=== PATIENT | female | born 1985 | race Asian ===

== ENCOUNTER → 2017-07-07 | Outpatient (CLI) | payer MEDICAID ==
--- NOTE | 2017-07-07 13:55 | US ---
EXAMINATION TYPE: US pelvic complete DATE OF EXAM: 07/07/2017 COMPARISON: NONE CLINICAL HISTORY: R10.2 Pelvic Pain. TECHNIQUE: Transabdominal sonographic images of the pelvis were acquired. Date of LMP: 06/24/17 EXAM MEASUREMENTS: Uterus: 9.3 x 3.1 x 5.5 cm Endometrial Stripe: 0.8 cm Right Ovary: 3.1 x 1.7 x 2.0 cm Left Ovary: 2.5 x 1.2 x 1.6 cm 1. Uterus: Anteverted wnl 2. Endometrium: wnl 3. Right Ovary: wnl 4. Left Ovary: wnl 5. Bilateral Adnexa: wnl 6. Posterior cul-de-sac: wnl IMPRESSION: Unremarkable pelvic ultrasound with no endometrial thickening or ovarian cysts.
== END ==
LOC: RADUSWWP 12:54
PROVIDERS: ATTEND Obstetrics & Gynecology
DX: R10.2 Pelvic and perineal pain (principal)
CPT/HCPCS: 76856

== ENCOUNTER → 2017-10-09 | Outpatient (CLI) | payer MEDICAID ==
--- NOTE | 2017-10-09 16:47 | US ---
EXAMINATION TYPE: US kidneys/renal and bladder DATE OF EXAM: 10/09/2017 COMPARISON: 07/07/2017 ultrasound pelvis CLINICAL HISTORY: Z31.21 Micro Hematuria. EXAM MEASUREMENTS: Right Kidney: 10.7 x 4.2 x 5.2 cm Left Kidney: 10.4 x 5.0 x 5.2 cm Post Void Residual Volume: 21 mL Right Kidney: Minimal prominence of the renal pelvis is present. Left Kidney: Left kidney appears normal. Bladder: Sonolucent Bilateral Jets seen: No Normal Post Void Residual: Yes IMPRESSION: Mild prominence of the right renal pelvis. 2. Retroperitoneal ultrasound otherwise unremarkable.
== END | disposition home or self-care (01) ==
LOC: RADUSWWP 10:55
PROVIDERS: ATTEND Urology
DX: R31.21 Asymptomatic microscopic hematuria (principal)
CPT/HCPCS: 76770

== ENCOUNTER → 2017-10-20 | Outpatient (CLI) | payer MEDICAID | END | disposition home or self-care (01) | LOC: LABWHC1 12:46 | PROVIDERS: ATTEND Obstetrics & Gynecology | DX: Z34.80 Encounter for supervision of other normal pregnancy, unspecified trimester (principal); Z3A.00 Weeks of gestation of pregnancy not specified | CPT/HCPCS: 36415; 84702 ==

== ENCOUNTER → 2017-10-20 | Outpatient (CLI) | payer MEDICAID ==
--- NOTE | 2017-10-20 13:19 | US ---
EXAMINATION TYPE: Transabdominal DATE OF EXAM: 06/10/17 COMPARISON: NONE CLINICAL HISTORY: Z36 Confirm dates, O46.91 Spotting first trimester. Bicornuate uterus. EXAM PERFORMED: Transvaginal (TV) and Transabdominal (TA) EXAM MEASUREMENTS: GESTATIONAL AGE / DATING Physician Established: Not yet established Dates by LMP: (7 weeks/2 days) EDC: 06/06/2018 Dates by First Scan: No previous this is first scan Dates by Current Scan for: (5weeks/5 days) EDC: 06/17/2018 MATERNAL ANATOMY Uterus: 10.3 x 4.6 x 6.7 cm Right Ovary: 4.1 x 3.1 x 4.1 cm Left Ovary: 2.6 x 1.3 x 1.7 cm Post CDS / Adnexa: Small amount of fluid visualized adjacent to the right ovary Presence of free fluid: Yes Presence of corpus luteal cyst: Yes, right ovary measuring 3.0 x 2.7 x 3.1 cm Presence of subchorionic bleed: No GESTATION / SURVEY CRL: 0.27 cm (5 weeks/6 days) MSD: 1.4 cm (5 weeks/4 days) Yolk Sac (normal less than 6mm): 3 mm Heart Rate: 123 bpm Rhythm: Normal IUP: Live IUP Date of LMP: 08/30/2017 Beta HcG (if available): Not available at this time Live IUP with an KAYLA of 06/17/2018 by this exam. Corpus luteal cyst area visualized right ovary measu ring 3.0 x 2.7 x 3.1 cm. Possible bicornate uterus is seen. Endometrial thickening is noted of the left endometrium, likely ph ysiologic and related to decidual reaction with intrauterine in the right endometrium IMPRESSION: Single live intrauterine with a sonographic age of 5 weeks and 5 days and estimated date of delivery of 06/17/2018, discordant with menstrual age.
== END | disposition home or self-care (01) ==
LOC: RADUSWWP 12:13
PROVIDERS: ATTEND Obstetrics & Gynecology
DX: Z36.89 Encounter for other specified antenatal screening (principal); Z3A.01 Less than 8 weeks gestation of pregnancy; Z88.0 Allergy status to penicillin; Z88.1 Allergy status to other antibiotic agents; Z88.5 Allergy status to narcotic agent
CPT/HCPCS: 76801; 76817

== ENCOUNTER → 2017-11-05 | Outpatient (CLI) | payer MEDICAID ==
[2017-11-05 10:22] LABS: HCT 40.1 % (34.0-46.0); HGB 12.9 gm/dL (11.4-16.0); MCH 30.7 pg (25.0-35.0); MCHC 32.2 g/dL (31.0-37.0); MCV 95.4 fL (80.0-100.0); Mean Platelet Volume 6.9; Platelet Count 229 k/uL (150-450); RDW 12.4 % (11.5-15.5); WBC 7.4 k/uL (3.8-10.6)
[2017-11-05 10:42] LABS: Glucose 68 mg/dL (74-99)
--- NOTE | 2017-11-05 16:52 | US ---
EXAMINATION TYPE: Transabdominal DATE OF EXAM: 06/10/17 COMPARISON: NONE CLINICAL HISTORY: First trimester bleeding/spotting O46.91. debbie ob, spotting EXAM PERFORMED: OBTA EXAM MEASUREMENTS: GESTATIONAL AGE / DATING Physician Established: not established Dates by LMP: (9 weeks/3 days) EDC: 06/06/2017 Dates by First Scan: (8 weeks/0 days) EDC: 06/17/2018 Dates by Current Scan for: (8 weeks/1 days) EDC: 06/16/2018 MATERNAL ANATOMY Uterus: 12.8 x 8.7 x 4.8cm, appearance of bicornuate UT with gestational sac seen within right horn Right Ovary: 5.3 x 3.5 x 3.5cm Left Ovary: not seen due to bowel gas Post CDS / Adnexa: wnl Presence of free fluid: no Presence of corpus luteal cyst: 3.6cm cyst Presence of subchorionic bleed: no GESTATION / SURVEY CRL: 1.6cm (8 weeks/1 days) MSD: wnl Yolk Sac (normal less than 6mm): 0.3cm Heart Rate: 160 bpm Rhythm: Normal IUP: Viable IUP Date of LMP: 08/30/2017 IMPRESSION: 1. Single intrauterine gestation estimated 8 weeks 1 day gestation based on crown-rump length. Cardia c activity measures 160 bpm.
== END | disposition home or self-care (01) ==
LOC: RADUSWWP 09:39
PROVIDERS: ATTEND Obstetrics & Gynecology
DX: O46.91 Antepartum hemorrhage, unspecified, first trimester (principal); Z3A.08 8 weeks gestation of pregnancy
CPT/HCPCS: 36415; 76801; 82565; 82947; 85027; 86762; 86780; 86850; 86900; 86901; 87340

== ENCOUNTER → 2017-12-01 | Outpatient (CLI) | payer MEDICAID ==
--- NOTE | 2017-12-01 12:35 | US ---
EXAMINATION TYPE: Transabdominal DATE OF EXAM: 06/10/17 COMPARISON: US 11/05/2017 CLINICAL HISTORY: O46.91 Spotting, O76 Absent Heart tones. Absent heart tones at doctor office. EXAM PERFORMED: Transabdominal (TA) EXAM MEASUREMENTS: GESTATIONAL AGE / DATING Physician Established: (11 weeks/5 days) EDC: 06/17/2018 Dates by First Scan: (11 weeks/5 days) EDC: 06/17/2018 Dates by Current Scan for: (12 weeks/0 days) EDC: 06/15/2018 MATERNAL ANATOMY Uterus: 10.9 x 6.0 x 8.1 cm, appearance of bicornuate UT with gestational sac seen within right horn Right Ovary: 4.7 x 3.5 x 3.3 cm Left Ovary: 2.7 x 1.2 x 1.6 cm Post CDS / Adnexa: wnl Presence of free fluid: No Presence of corpus luteal cyst: Right ovary measuring 2.6 x 2.6 x 2.6 cm, previously measuring 3.6 c m on 11/05/2017 Presence of subchorionic bleed: No GESTATION / SURVEY CRL: (12 weeks/0 days) Heart Rate: 171 bpm Rhythm: Normal IUP: Viable IUP Date of LMP: Unsure Beta HcG (if available): Not available at time of exam Single live intrauterine gestation is redemonstrated as gestational sac and pole are seen. Yolk sac is not clearly identified on current study. No free fluid is seen in pelvic cul-de-sac. Both ovaries are seen. Cystic area right ovary is redemonstrated measuring 2.6 x 2.6 x 2.6 cm, previ ously measuring 3.6 cm on 11/05/2017 . No suspicious extraovarian adnexal lesions are present. Preliminary results given to Dr Bhardwaj at time of exam. IMPRESSION: Single live intrauterine gestation is redemonstrated, heart rate is identified and regular and within normal limits. Mean crown-rump length is 5.3 cm corresponding to 12 weeks 0 day old fetus.
== END | disposition home or self-care (01) ==
LOC: RADUSWWP 11:42
PROVIDERS: ATTEND Obstetrics & Gynecology
DX: O46.91 Antepartum hemorrhage, unspecified, first trimester (principal); Z3A.12 12 weeks gestation of pregnancy
CPT/HCPCS: 76801

== ENCOUNTER → 2018-01-21 | Outpatient (CLI) | payer MEDICAID ==
--- NOTE | 2018-01-22 07:16 | US ---
EXAMINATION TYPE: US OB anatomy transabd DATE OF EXAM: 01/21/2018 COMPARISON: US HISTORY: O36.62X0 LARGE FOR DATES Anatomy scan TECHNIQUE: Transabdominal (TA) EXAM MEASUREMENTS: GESTATIONAL AGE / DATING Physician Established: (19 weeks/0 days) EDC: 06/17/2018 Dates by LMP: Unknown Dates by First Scan: (19 weeks/0 days) EDC: 06/17/2018 Dates by Current Scan for: (18 weeks/2 days) EDC: 06/22/2018 SURVEY IUP: Single PLACENTA: Posterior PREVIA: Marginal JAZ: 12.4 cm Normal CERVICAL LENGTH (transabdominal: norm > 3.0cm): 3.3 cm BIOMETRY PRESENTATION: Breech BPD: 4.1 cm 18 weeks / 4 days HC: 15.4 cm 18 weeks / 3 days AC: 12.4 cm 18 weeks / 1 days FL: 2.6 cm 18 weeks / 0 days ESTIMATED WEIGHT IN GRAMS: 220 grams ESTIMATED WEIGHT IN LBS/OZ: 0 lbs. 8 oz. WEIGHT PERCENTAGE BASED ON ESTABLISHED DATE: 7 % HC/AC: 1.24 Normal FL/AC: 21 Normal HEART RATE: 147 bpm RHYTHM: Normal ANATOMY SEEN (within normal limits): * Lateral Vent (< 1 cm) 0.7 cm * Cisterna Magna (< 1.1 cm) 0.3 cm * Nuchal Fold (< 0.6 cm) 0.3 cm * Cerebellum (varies with age) 1.9 cm Choroid Plexus (bilateral) Midline Falx Cavus Septi Pellucidi Outflow tracts: LVOT/RVOT Stomach Situs Nose / Lips Diaphragm Kidneys (bilateral) Bladder Cord Insert Three Vessel Cord Longitudinal Spine Transverse Spine Arms (bilateral) Legs (bilateral) ANATOMY SEEN (does not appear within normal limits): Four Chamber Heart- Echogenic foci seen within ventricle IMPRESSION: Single, viable IUP/ Marginal placental previa/ Echogenic foci within ventricle of heart, otherwise all other anatomy appeared wnl Pt has known bicornuate uterus, septation seen at uterine fundus during scan
== END ==
LOC: RADUSWWP 09:38
PROVIDERS: ATTEND Obstetrics & Gynecology
DX: O44.22 Partial placenta previa NOS or without hemorrhage, second trimester (principal); O99.89 Other specified diseases and conditions complicating pregnancy, childbirth and the puerperium; Q51.3 Bicornate uterus; Z3A.18 18 weeks gestation of pregnancy
CPT/HCPCS: 76811

== ENCOUNTER → 2018-03-12 | Outpatient (CLI) | payer MEDICAID ==
[2018-03-12 13:03] LABS: HCT 34.3 % (34.0-46.0); HGB 11.6 gm/dL (11.4-16.0); MCH 31.6 pg (25.0-35.0); Mean Platelet Volume 7.7; Platelet Count 179 k/uL (150-450); RBC 3.68 m/uL (3.80-5.40); RDW 12.9 % (11.5-15.5); WBC 12.8 k/uL (3.8-10.6)
== END ==
LOC: LABWHC1 10:39
PROVIDERS: ATTEND Obstetrics & Gynecology
DX: Z34.82 Encounter for supervision of other normal pregnancy, second trimester (principal); Z3A.00 Weeks of gestation of pregnancy not specified
CPT/HCPCS: 36415; 82950; 85027

== ENCOUNTER 2018-04-16 17:18 | Observation (INO) | payer MEDICAID ==
[2018-04-16 18:40] VITALS: BMI 22.2
--- NOTE | 2018-04-16 19:29 | P.HPOB ---
History of Present Illness H&P Date: 04/16/18 Chief Complaint: Vaginal bleeding This is a 32-year-old female 2 para 1 with an estimated date of confinement of 06/17/2018, estimated gestational age of 31 and one sevenths weeks, who presents to labor and delivery with complaints of vaginal bleeding since approximate 4 PM today. She was seen at maternal medicine today and had an ultrasound performed that showed a low-lying placenta but no previa and breech presentation. She went to the bathroom and when she wiped she noticed some blood. She then put a pad on and came into labor and delivery. She denies any significant pain but does notice some very mild lower cramping. She denies any clots or heavy bleeding. Her has been complicated by a bicornuate uterus. She also had a abnormal quad screen that showed increased risk for Down syndrome. She had [id number] that was within normal limits. echo was also performed that was within normal limits. labs: GC/chlamydia-negative Random glucose-68 Hemoglobin-12.9 Hepatitis B surface antigen-nonreactive Rubella-immune Syphilis antibody-nonreactive Blood type-O+ Antibody screen-negative One hour Glucola-119 Obstetrical history: . History of delivery at 37 weeks for labor and breech presentation [employer] history: No history of sexual transmitted diseases. History of bicornate uterus Review of Systems Constitutional: Denies chills, Denies fever Eyes: denies blurred vision, denies pain Ears, nose, mouth and throat: Denies headache, Denies sore throat Cardiovascular: Denies chest pain, Denies shortness of breath Respiratory: Denies cough Gastrointestinal: Denies abdominal pain Genitourinary: Reports abnormal vaginal bleeding, Reports pelvic pain (Mild lower cramping), Reports Musculoskeletal: Denies myalgias Integumentary: Denies pruritus, Denies rash Neurological: Denies numbness, Denies weakness Psychiatric: Denies anxiety, Denies depression Past Medical History Past Medical History: No Reported History Additional Past Medical History / Comment(s): Bicornuate uterus History of Any Multi-Drug Resistant Organisms: None Reported Past Surgical History: Section, Ear Surgery Past Anesthesia/Blood Transfusion Reactions: No Reported Reaction Past Psychological History: No Psychological Hx Reported Smoking Status: Never smoker Past Alcohol Use History: None Reported Past Drug Use History: None Reported - Past Family History Father Additional Family Medical History / Comment(s): Cirrhosis of the liver Medications and Allergies Home Medications Medication Instructions Recorded Confirmed Type RX: Pnv,Calcium 72/Iron/Folic Acid 1 each PO DAILY 05/25/15 04/16/18 History [ Plus Tablet] Allergies Allergy/AdvReac Type Severity Reaction Status Date / Time acetaminophen [From Percocet] Allergy Nausea & Verified 05/25/15 20:52 Vomiting cefaclor [From Ceclor] Allergy Rash/Hives Verified 05/25/15 20:52 oxycodone HCl [From Percocet] Allergy Nausea & Verified 05/25/15 20:52 Vomiting Penicillins Allergy Rash/Hives Verified 05/25/15 20:52 sulfamethoxazole Allergy Rash/Hives Verified 04/16/18 19:24 [From Bactrim] trimethoprim [From Bactrim] Allergy Rash/Hives Verified 04/16/18 19:24 Exam Osteopathic Statement: *. No significant issues noted on an osteopathic structural exam other than those noted in the History and Physical/Consult. Vital Signs Temp Pulse Resp BP Pulse Ox 04/16/18 18:28 97.6 F 68 18 118/74 100 04/16/18 17:42 97.6 F 68 18 118/74 Intake and Output 04/16/18 04/16/18 04/16/18 06:59 14:59 22:59 Other: Weight 62.596 kg HEENT: Within normal limits Heart: Regular rate and rhythm Lungs: Clear to auscultation bilaterally Abdomen: Soft, nontender Cervix: Closed/50%/-3 with scant dark blood noted on the glove. Scant brown discharge is noted on her panty liner heart tones: Reactive Contractions: None Extremities: Negative Homans Assessment and Plan (1) Vaginal bleeding during Current Visit: Yes Status: Acute Code(s): O46.90 - ANTEPARTUM HEMORRHAGE, UNSPECIFIED, UNSPECIFIED TRIMESTER SNOMED Code(s): 58231063402192391 (2) Breech presentation Current Visit: No Status: Acute Code(s): O32.1XX0 - MATERNAL CARE FOR BREECH PRESENTATION, UNSP SNOMED Code(s): 2189978 Plan: Will admit for observation. Continuous monitoring.
--- NOTE | 2018-04-16 19:31 | P.MSEPDOC ---
Presenting Problems - Arrival Data Date of Arrival on Unit: 04/16/18 Time of Arrival on Unit: 17:30 Mode of Transport: Ambulatory - Complaint OB-Reason for Admission/Chief Complaint: Vaginal Bleeding Medical History - Information : 2 Para: 1 Term: 1 : 0 Abortions: Spontaneous or Elective: 0 Number of Living Children: 1 - Gestational Age Gestational Age by KAYLA (wks/days): 31 Weeks and 1 Days - History Complications: Prior , Placenta Previa Comment: ultrasound at high risk today showed low lying placenta - per pt Review of Systems - Review of Systems Constitutional: No problems Breast: No problems ENT: No problems Cardiovascular: No problems Respiratory: No problems Gastrointestinal: No problems Genitourinary: No problems Musculoskeletal: No problems Neurological: No problems Skin: No problems Vital Signs - Temperature Temperature: 97.6 F Temperature Source: Temporal Artery Scan - Pulse Right Sitting Brachial Pulse Rate: 68 Pulse Assessment Method: Automatic Cuff - Respirations Respiratory Rate: 18 Oxygen Delivery Method: Room Air O2 Sat by Pulse Oximetry: 100 - Blood Pressure Right Arm Sitting Blood Pressure: 118/74 Blood Pressure Mean: 88 Blood Pressure Source: Automatic Cuff Medical Screen Scoring (Pre) - Cervical Exam Dilation: 0 cm = 0 - Uterine Contractions Frequency: N/A Duration: N/A Intensity: N/A - Maternal Vital Signs Maternal Temperature: N/A Signs of Preeclampsia: N/A Maternal Respirations: N/A - Pain Assessment Pain Scale Used: Numeric (1 - 10) Pain Intensity: 0 Pain Management Goal: 3 - Maternal Trauma Maternal Trauma: N/A - Assessment Baseline FHR: 130 Heart Rate - NICHD Category: Category I (Normal) = 0 NST: Reactive Position: N/A Station: N/A - Total Score Total Score (Pre): 0 - Level of Risk Level of Risk: Low (0-5) Physician Notification (Pre) - Physician Notified Physician Notified Date: 04/16/18 Physician Notified Time: 18:00 Physician/Practitioner Notifed:: Dr Pizarro Spoke With: Dr Pizarro New Order Received: Yes - Notification Comment Comment: pt assessed and examined per Dr Pizarro in triage. Admit for OBV - vaginal bleeding. Disposition - Disposition OB Disposition: Admit, LDRP Suite Transferred to:: 18 I agree with the RN Medical Screening Exam: Yes Risk & Benefit of care provided described in d/c instruction: Yes Diagnosis: ANTEPARTUM HEMORRHAGE, UNSPECIFIED, THIRD TRIMESTER
--- NOTE | 2018-04-17 07:33 | P.DS ---
Providers Date of admission: 04/16/18 18:04 Expected date of discharge: 04/17/18 Attending physician: Rose Pizarro Primary care physician: Stated None - Discharge Diagnosis(es) (1) Vaginal bleeding during Current Visit: Yes Status: Acute (2) Breech presentation Current Visit: No Status: Acute Hospital Course: This is a 32-year-old female 2 para 1 at 31-2/7 weeks who presented yesterday with some vaginal bleeding with wiping. This started after she returned from [place] after seeing maternal medicine and having ultrasound at that time. She was told that her placenta was still low-lying but not covering the cervix. Her cervix was checked and found to be closed, 50% , -3. She had minimal bleeding noted on her pad and a scant amount was noted with her cervical check. All of the blood was dark brown. She was admitted for observation overnight. She states her bleeding has stopped very much completely this morning. She has had no bleeding on her pad. Her baby is active and she denies feeling any cramping or pain. She will be discharged home today. She is advised to stay off of work until Friday. She is advised no intercourse. She does have a follow-up appointment with me next week. She is advised to return to the hospital if she has any further bright red bleeding or clots. Patient Condition at Discharge: Stable Plan - Discharge Summary New Discharge Prescriptions: No Action Pnv,Calcium 72/Iron/Folic Acid [ Plus Tablet] 1 each PO DAILY Discharge Medication List Pnv,Calcium 72/Iron/Folic Acid [ Plus Tablet] 1 each PO DAILY 05/25/15 [ History] Activity/Diet/Wound Care/Special Instructions: No intercourse. May resume normal activities with no lifting more than 20 pounds. Off work until Friday. Discharge Disposition: HOME SELF-CARE
[2018-04-17 09:55] VITALS: BP 105/65; PULSE 63; RESP 16; TEMP 97.3
== END 2018-04-17 09:22 | disposition home or self-care (01) ==
LOC: FBPOP 17:18 → 4FBP 18:04
PROVIDERS: ADMIT Obstetrics & Gynecology; ATTEND Obstetrics & Gynecology
DX: O44.53 Low lying placenta with hemorrhage, third trimester (principal); O34.03 Maternal care for unspecified congenital malformation of uterus, third trimester; Q51.3 Bicornate uterus; O32.1XX0 Maternal care for breech presentation, not applicable or unspecified; Z3A.31 31 weeks gestation of pregnancy; O34.219 Maternal care for unspecified type scar from previous cesarean delivery; Z83.49 Family history of other endocrine, nutritional and metabolic diseases; Z88.1 Allergy status to other antibiotic agents; Z88.5 Allergy status to narcotic agent; Z88.0 Allergy status to penicillin; Z88.2 Allergy status to sulfonamides
CPT/HCPCS: 59025; 99215; G0378 ×2

== ENCOUNTER 2018-04-22 18:16 | Outpatient (CLI) | payer MEDICAID ==
[2018-04-22 18:50] VITALS: BP 133/86; PULSE 85; RESP 18; TEMP 98
--- NOTE | 2018-04-22 20:11 | US ---
EXAMINATION TYPE: US OB >= 14 wk fetus DATE OF EXAM: 04/22/2018 COMPARISON: None CLINICAL HISTORY: vaginal bleedingBleeding patient has bicornuate uterus. TECHNIQUE: Transabdominal (TA) GESTATIONAL AGE / DATING Physician Established: (32 weeks/0 days) EDC: 06/17/2018 Dates by LMP: (32 weeks/0 days) EDC: 06/17/2018 Dates by First Scan: (5 weeks/4 days) EDC: 06/17/2018 Dates by Current Scan: (30 weeks/0 days) EDC: 07/01/2018 SURVEY IUP: Single PLACENTA: Posterior PREVIA: Low Lying JAZ: 15 cm Normal CERVICAL LENGTH (transabdominal: norm > 3.0cm): 3.7 cm BIOMETRY PRESENTATION: Vertex LIE: Longitudinal BPD: 8.19 cm 32 weeks / 6 days HC: 29.29 cm 32 weeks / 2 days AC: 25.4 cm 29 weeks / 2 days FL: 5.39 cm 28 weeks / 4 days ESTIMATED WEIGHT IN GRAMS: 1415 grams ESTIMATED WEIGHT IN LBS/OZ: 3 lbs. 7 oz. WEIGHT PERCENTAGE BASED ON ESTABLISHED DATES: <3% HC/AC: 1.17cm Normal FL/AC: 21.52cm Normal HEART RATE: 132 bpm RHYTHM: Normal IMPRESSION: The estimated weight is 1415 g which is less than 3 percentile compared to the original exam of 10/20/2017. IUGR should be considered. No placental abnormality seen.
--- NOTE | 2018-05-03 12:39 | P.MSEPDOC ---
Presenting Problems - Arrival Data Date of Arrival on Unit: 04/22/18 Time of Arrival on Unit: 18:35 Mode of Transport: Portable - Complaint OB-Reason for Admission/Chief Complaint: Vaginal Bleeding Medical History - Information : 2 Para: 1 Term: 1 : 0 Abortions: Spontaneous or Elective: 0 Number of Living Children: 1 - Gestational Age Gestational Age by KAYLA (wks/days): 32 Weeks and 0 Days - History Complications: Placenta Previa Comment: pt states low lying placenta at her last ultrasound with high risk - last week. Review of Systems - Review of Systems Constitutional: No problems Breast: No problems ENT: No problems Cardiovascular: No problems Respiratory: No problems Gastrointestinal: No problems Genitourinary: No problems Musculoskeletal: No problems Neurological: No problems Skin: No problems Comment: vaginal bleeding Vital Signs - Temperature Temperature: 98.0 F Temperature Source: Temporal Artery Scan - Pulse Right Sitting Brachial Pulse Rate: 85 Pulse Assessment Method: Automatic Cuff - Respirations Respiratory Rate: 18 Oxygen Delivery Method: Room Air - Blood Pressure Right Arm Sitting Blood Pressure: 133/86 Blood Pressure Mean: 101 Blood Pressure Source: Automatic Cuff Medical Screen Scoring (Pre) - Cervical Exam Dilation: Exam Deferred Effacement: Exam Deferred - Uterine Contractions Frequency: N/A - Maternal Vital Signs Maternal Temperature: N/A Maternal Blood Pressure: N/A Signs of Preeclampsia: N/A Maternal Respirations: N/A - Pain Assessment Pain Scale Used: Numeric (1 - 10) Pain Intensity: 0 Pain Management Goal: 3 - Maternal Trauma Maternal Trauma: N/A - Assessment Baseline FHR: 135 Heart Rate - NICHD Category: Category I (Normal) = 0 NST: Reactive Position: N/A Station: N/A - Total Score Total Score (Pre): 0 - Level of Risk Level of Risk: N/A Physician Notification (Pre) - Physician Notified Physician Notified Date: 04/22/18 Physician Notified Time: 18:45 Physician/Practitioner Notifed:: Dr Alexander Spoke With: Dr Alexander New Order Received: Yes - Notification Comment Comment: pending Ultrasound at bedside Medical Screen Scoring (Post) - Cervical Exam Dilation: Exam Deferred Effacement: Exam Deferred Membranes: Intact - Uterine Contractions Frequency: N/A - Maternal Vital Signs Maternal Temperature: N/A Maternal Blood Pressure: N/A Signs of Preeclampsia: N/A Maternal Respirations: N/A - Pain Assessment Pain Scale Used: Numeric (1 - 10) Pain Intensity: 0 - Assessment Heart Rate: 130 Heart Rate - NICHD Category: Category I (Normal) = 0 NST: Reactive Position: N/A Station: N/A - Total Score Total Score (Post): 0 - Post Treatment Level of Risk Post Treatment Level of Risk: Low (0-5) Physician Notification (Post) - Physician Notified Physician Notified Date: 04/22/18 Physician Notified Time: 20:22 Physician/Practitioner Notified:: Dr. Alexander Spoke With: Dr. Alexander New Order Received: Yes - Notification Comment Comment: Dr. Alexander called and given report on pt u/s results in tr. Orders recieved. that pt may stay for obv if desired or to be d/c to home and follow up with Dr. Pizarro in. am apt. Disposition - Disposition OB Disposition: Discharge to home Discharge Date: 04/22/18 Discharge Time: 21:10 I agree with the RN Medical Screening Exam: Yes Risk & Benefit of care provided described in d/c instruction: Yes Diagnosis: SPOTTING COMPLICATING , THIRD TRIMESTER
== END 2018-04-22 21:15 | disposition home or self-care (01) ==
LOC: FBPOP 18:16
PROVIDERS: ATTEND Obstetrics & Gynecology
DX: O26.853 Spotting complicating pregnancy, third trimester (principal); Z3A.32 32 weeks gestation of pregnancy
CPT/HCPCS: 59025; 76805; 99213

== ENCOUNTER 2018-04-23 11:59 | Outpatient (CLI) | payer MEDICAID ==
[2018-04-23] MEDS ORDERED: BETAMET ACET-BETAMETH SOD PHOS 6 MG/ML VIAL IM SCH (12:30)
[2018-04-23 13:36] VITALS: BP 126/72; PULSE 71; RESP 16; TEMP 98.3
--- NOTE | 2018-04-24 08:37 | P.MSEPDOC ---
Presenting Problems - Arrival Data Date of Arrival on Unit: 04/23/18 Time of Arrival on Unit: 11:59 Mode of Transport: Ambulatory - Complaint OB-Reason for Admission/Chief Complaint: NST, Celestone Injection Comment: from office. 32 weeks.low lying placenta/bicornia uterus/bleeding Medical History - Information : 2 Para: 1 Term: 1 : 0 Abortions: Spontaneous or Elective: 0 Number of Living Children: 0 - Gestational Age Gestational Age by KAYLA (wks/days): 32 Weeks and 1 Days - History Complications: Other Review of Systems - Review of Systems Constitutional: No problems Breast: No problems ENT: No problems Cardiovascular: No problems Respiratory: No problems Gastrointestinal: No problems Genitourinary: No problems Musculoskeletal: No problems Neurological: No problems Skin: No problems Vital Signs - Temperature Temperature: 98.3 F Temperature Source: Temporal Artery Scan - Pulse Right Radial Pulse Rate: 71 Pulse Assessment Method: Automatic Cuff - Respirations Respiratory Rate: 16 Oxygen Delivery Method: Room Air O2 Sat by Pulse Oximetry: 99 - Blood Pressure Right Arm Blood Pressure: 126/72 Blood Pressure Mean: 90 Blood Pressure Source: Automatic Cuff Medical Screen Scoring (Pre) - Cervical Exam Dilation: Exam Deferred Effacement: Exam Deferred - Uterine Contractions Frequency: N/A Duration: N/A Intensity: N/A - Maternal Vital Signs Maternal Temperature: N/A Maternal Blood Pressure: N/A Signs of Preeclampsia: N/A Maternal Respirations: N/A - Pain Assessment Pain Scale Used: Numeric (1 - 10) Pain Intensity: 0 - Maternal Trauma Maternal Trauma: N/A - Assessment Baseline FHR: 140 Heart Rate - NICHD Category: Category I (Normal) = 0 NST: Reactive Position: N/A - Total Score Total Score (Pre): 0 - Level of Risk Level of Risk: Low (0-5) Physician Notification (Pre) - Physician Notified Physician Notified Date: 04/23/18 Physician Notified Time: 13:15 Physician/Practitioner Notifed:: rosenda Spoke With: rosenda New Order Received: Yes (may discharge home with instructions) - Notification Comment Comment: return for repeat celestone tomorrow. nst, to see high risk next week Disposition - Disposition OB Disposition: Discharge to home, Written follow up instructions reviewed Discharge Date: 04/23/18 Discharge Time: 13:20 I agree with the RN Medical Screening Exam: Yes Risk & Benefit of care provided described in d/c instruction: Yes Diagnosis: LABOR WITHOUT DELIVERY, THIRD TRIMESTER
== END 2018-04-23 13:20 | disposition home or self-care (01) ==
LOC: FBPOP 11:59
PROVIDERS: ATTEND Obstetrics & Gynecology
DX: O60.03 Preterm labor without delivery, third trimester (principal); Z3A.32 32 weeks gestation of pregnancy
CPT/HCPCS: 59025; 96372; J0702

== ENCOUNTER 2018-04-24 12:29 | Outpatient (CLI) | payer MEDICAID ==
[2018-04-24] MEDS ORDERED: BETAMET ACET-BETAMETH SOD PHOS 6 MG/ML VIAL IM SCH (12:45)
[2018-04-24 14:17] VITALS: BP 124/68; PULSE 80; RESP 14; TEMP 97.5
--- NOTE | 2018-04-25 00:10 | P.MSEPDOC ---
Presenting Problems - Arrival Data Date of Arrival on Unit: 04/24/18 Time of Arrival on Unit: 12:33 Mode of Transport: Ambulatory - Complaint OB-Reason for Admission/Chief Complaint: Celestone Injection Medical History - Information : 2 Para: 1 Term: 1 : 0 Abortions: Spontaneous or Elective: 0 Number of Living Children: 1 - Gestational Age Gestational Age by KAYLA (wks/days): 32 Weeks and 3 Days Review of Systems - Review of Systems Constitutional: No problems Breast: No problems ENT: No problems Cardiovascular: No problems Respiratory: No problems Gastrointestinal: No problems Genitourinary: No problems Musculoskeletal: No problems Neurological: No problems Skin: No problems Vital Signs - Temperature Temperature: 97.5 F Temperature Source: Tympanic - Pulse Right Brachial Pulse Rate: 80 Pulse Assessment Method: Automatic Cuff - Respirations Respiratory Rate: 14 Oxygen Delivery Method: Room Air - Blood Pressure Right Arm Blood Pressure: 124/68 Blood Pressure Mean: 86 Blood Pressure Source: Automatic Cuff Medical Screen Scoring (Pre) - Cervical Exam Dilation: 1-3 cm = 1 Effacement: More than 50% = 2 Membranes: Intact - Uterine Contractions Frequency: N/A Duration: N/A Intensity: N/A - Maternal Vital Signs Maternal Temperature: N/A Maternal Blood Pressure: N/A Signs of Preeclampsia: N/A Maternal Respirations: N/A - Pain Assessment Pain Scale Used: Numeric (1 - 10) Pain Intensity: 0 Pain Management Goal: 0 - Maternal Trauma Maternal Trauma: N/A - Assessment Baseline FHR: 135 Heart Rate - NICHD Category: Category I (Normal) = 0 NST: Reactive Position: N/A Station: N/A - Total Score Total Score (Pre): 3 - Level of Risk Level of Risk: Low (0-5) Physician Notification (Pre) - Physician Notified Physician Notified Date: 04/24/18 Physician Notified Time: 13:05 Physician/Practitioner Notifed:: Dr. Pizarro Spoke With: Dr. Pizarro New Order Received: Yes - Notification Comment Comment: check cervix and if the same as yesterday d/c home Disposition - Disposition OB Disposition: Discharge to home Discharge Date: 04/24/18 Discharge Time: 13:17 I agree with the RN Medical Screening Exam: Yes Risk & Benefit of care provided described in d/c instruction: Yes Diagnosis: LABOR WITHOUT DELIVERY, THIRD TRIMESTER
== END 2018-04-24 13:20 | disposition home or self-care (01) ==
LOC: FBPOP 12:29
PROVIDERS: ATTEND Obstetrics & Gynecology
DX: O60.03 Preterm labor without delivery, third trimester (principal); Z3A.32 32 weeks gestation of pregnancy
CPT/HCPCS: 59025; 99213; J0702

== ENCOUNTER 2018-04-28 12:58 | Outpatient (CLI) | payer MEDICAID ==
[2018-04-28 13:24] VITALS: BP 112/63; PULSE 79
--- NOTE | 2018-04-30 07:56 | P.MSEPDOC ---
Presenting Problems - Arrival Data Date of Arrival on Unit: 04/28/18 Time of Arrival on Unit: 12:58 Mode of Transport: Ambulatory - Complaint OB-Reason for Admission/Chief Complaint: NST Medical History - Information : 2 Para: 1 Term: 1 : 0 Abortions: Spontaneous or Elective: 0 Number of Living Children: 1 - Gestational Age Gestational Age by KAYLA (wks/days): 32 Weeks and 6 Days - History Complications: Placenta Previa Comment: Bleeding with Review of Systems - Review of Systems Constitutional: No problems Breast: No problems ENT: No problems Cardiovascular: No problems Respiratory: No problems Gastrointestinal: No problems Genitourinary: No problems Musculoskeletal: No problems Neurological: No problems Skin: No problems Vital Signs - Pulse Pulse Oximetery Pulse Rate: 79 Pulse Assessment Method: Pulse Oximetry - Blood Pressure Right Arm Blood Pressure: 112/63 Blood Pressure Mean: 79 Blood Pressure Source: Automatic Cuff Medical Screen Scoring (Pre) - Cervical Exam Dilation: Exam Deferred Effacement: Exam Deferred - Uterine Contractions Frequency: N/A Duration: N/A Intensity: N/A - Maternal Vital Signs Maternal Temperature: N/A Signs of Preeclampsia: N/A Maternal Respirations: N/A - Pain Assessment Pain Scale Used: Numeric (1 - 10) Pain Intensity: 0 Pain Management Goal: 0 - Maternal Trauma Maternal Trauma: N/A - Assessment Heart Rate - NICHD Category: Category I (Normal) = 0 NST: Reactive Position: N/A Station: N/A - Total Score Total Score (Pre): 0 - Level of Risk Level of Risk: N/A Physician Notification (Pre) - Physician Notified Physician Notified Date: 04/28/18 Physician/Practitioner Notifed:: Moira Medical Screen Scoring (Post) - Assessment Heart Rate - NICHD Category: Category I (Normal) = 0 NST: Reactive Position: N/A - Total Score Total Score (Post): 0 - Post Treatment Level of Risk Post Treatment Level of Risk: N/A Physician Notification (Post) - Physician Notified Physician Notified Date: 04/28/18 Physician Notified Time: 13:30 Physician/Practitioner Notified:: Dr. Pizarro Spoke With: Dr. Pizarro New Order Received: No - Notification Comment Comment: Discharge pt home. Pt to continue with current plan. Disposition - Disposition OB Disposition: Discharge to home Discharge Date: 04/28/18 Discharge Time: 14:20 I agree with the RN Medical Screening Exam: Yes Risk & Benefit of care provided described in d/c instruction: Yes Diagnosis: LABOR WITHOUT DELIVERY, THIRD TRIMESTER
== END 2018-04-28 14:20 | disposition home or self-care (01) ==
LOC: FBPOP 12:58
PROVIDERS: ATTEND Obstetrics & Gynecology
DX: O60.03 Preterm labor without delivery, third trimester (principal); Z3A.32 32 weeks gestation of pregnancy
CPT/HCPCS: 59025

== ENCOUNTER 2018-05-05 11:23 | Outpatient (CLI) | payer MEDICAID ==
--- NOTE | 2018-05-05 12:52 | P.MSEPDOC ---
Presenting Problems - Arrival Data Date of Arrival on Unit: 05/05/18 Time of Arrival on Unit: 11:23 Mode of Transport: Ambulatory I agree with the RN Medical Screening Exam: Yes Risk & Benefit of care provided described in d/c instruction: Yes Diagnosis: ENCTR FOR SCREENING FOR GROWTH RETARDATION
[2018-05-05 13:45] VITALS: BP 114/73; PULSE 86; RESP 18; TEMP 97.7
== END 2018-05-05 12:15 | disposition home or self-care (01) ==
LOC: FBPOP 11:23
PROVIDERS: ATTEND Obstetrics & Gynecology
DX: Z36.4 Encounter for antenatal screening for fetal growth retardation (principal)
CPT/HCPCS: 59025

== ENCOUNTER 2018-05-11 10:41 | Outpatient (CLI) | payer MEDICAID ==
--- NOTE | 2018-05-12 08:52 | P.MSEPDOC ---
Presenting Problems - Arrival Data Date of Arrival on Unit: 05/11/18 Time of Arrival on Unit: 10:43 Mode of Transport: Ambulatory - Complaint OB-Reason for Admission/Chief Complaint: NST Comment: pt here for weekly NST Medical History - Information : 2 Para: 1 Term: 1 : 0 Abortions: Spontaneous or Elective: 0 Number of Living Children: 0 - Gestational Age Gestational Age by KAYLA (wks/days): 34 Weeks and 5 Days Medical Screen Scoring (Pre) - Level of Risk Level of Risk: N/A Physician Notification (Pre) - Physician Notified Physician Notified Date: 05/11/18 Physician Notified Time: 11:05 Physician/Practitioner Notifed:: REBECCA New Order Received: No Disposition - Disposition OB Disposition: Discharge to home, Written follow up instructions reviewed Discharge Date: 05/11/18 Discharge Time: 11:10 I agree with the RN Medical Screening Exam: Yes Risk & Benefit of care provided described in d/c instruction: Yes Diagnosis: MATERN CARE FOR OTH OR SUSP POOR FETL GRTH, THIRD TRI, UNSP
== END 2018-05-11 11:10 | disposition home or self-care (01) ==
LOC: FBPOP 10:41
PROVIDERS: ATTEND Obstetrics & Gynecology
DX: O36.5930 Maternal care for other known or suspected poor fetal growth, third trimester, not applicable or unspecified (principal); Z3A.34 34 weeks gestation of pregnancy
CPT/HCPCS: 59025

== ENCOUNTER 2018-05-18 11:25 | Outpatient (CLI) | payer MEDICAID ==
[2018-05-18 12:27] VITALS: BP 118/69; PULSE 68; RESP 16; TEMP 97.7
--- NOTE | 2018-05-19 07:05 | P.MSEPDOC ---
Presenting Problems - Arrival Data Date of Arrival on Unit: 05/18/18 Time of Arrival on Unit: 11:20 Mode of Transport: Ambulatory - Complaint OB-Reason for Admission/Chief Complaint: NST Medical History - Information : 2 Para: 1 Term: 1 : 0 Abortions: Spontaneous or Elective: 0 Number of Living Children: 1 - Gestational Age Gestational Age by KAYLA (wks/days): 35 Weeks and 5 Days - History Complications: Placenta Previa Comment: placenta previa resolved, IUGR Review of Systems - Review of Systems Constitutional: No problems Breast: No problems ENT: No problems Cardiovascular: No problems Respiratory: No problems Gastrointestinal: No problems Genitourinary: No problems Musculoskeletal: No problems Neurological: No problems Skin: No problems Vital Signs - Temperature Temperature: 97.7 F Temperature Source: Temporal Artery Scan - Pulse Right Sitting Pulse Rate: 68 Pulse Assessment Method: Automatic Cuff - Respirations Respiratory Rate: 16 Oxygen Delivery Method: Room Air - Blood Pressure Right Arm Blood Pressure: 118/69 Blood Pressure Mean: 85 Blood Pressure Source: Automatic Cuff Medical Screen Scoring (Pre) - Cervical Exam Dilation: Exam Deferred Effacement: Exam Deferred - Uterine Contractions Frequency: N/A - Maternal Vital Signs Maternal Temperature: N/A Maternal Blood Pressure: N/A Signs of Preeclampsia: N/A Maternal Respirations: N/A - Pain Assessment Pain Scale Used: Numeric (1 - 10) Pain Intensity: 0 - Maternal Trauma Maternal Trauma: N/A - Assessment Baseline FHR: 135 Heart Rate - NICHD Category: Category I (Normal) = 0 NST: Reactive Position: N/A Station: N/A - Total Score Total Score (Pre): 0 - Level of Risk Level of Risk: Low (0-5) Physician Notification (Pre) - Physician Notified Physician Notified Date: 05/18/18 Physician Notified Time: 11:52 Physician/Practitioner Notifed:: Moira New Order Received: Yes (D/c home) Disposition - Disposition Discharge Date: 05/18/18 Discharge Time: 12:00 I agree with the RN Medical Screening Exam: Yes Risk & Benefit of care provided described in d/c instruction: Yes Diagnosis: MATERN CARE FOR OTH OR SUSP POOR FETL GRTH, THIRD TRI, UNSP
== END 2018-05-18 12:00 | disposition home or self-care (01) ==
LOC: FBPOP 11:25
PROVIDERS: ATTEND Obstetrics & Gynecology
DX: O36.5930 Maternal care for other known or suspected poor fetal growth, third trimester, not applicable or unspecified (principal); Z3A.35 35 weeks gestation of pregnancy
CPT/HCPCS: 59025; 99213

== ENCOUNTER 2018-05-25 09:28 | Outpatient (CLI) | payer MEDICAID ==
[2018-05-25 11:03] VITALS: BP 123/72; PULSE 71; RESP 18; TEMP 97.2
--- NOTE | 2018-05-27 13:33 | P.MSEPDOC ---
Presenting Problems - Arrival Data Date of Arrival on Unit: 05/25/18 Time of Arrival on Unit: 09:28 Mode of Transport: Ambulatory - Complaint OB-Reason for Admission/Chief Complaint: NST Comment: NST for IUGR Medical History - Information : 2 Para: 1 Term: 1 : 0 Abortions: Spontaneous or Elective: 0 Number of Living Children: 1 - Gestational Age Gestational Age by KAYLA (wks/days): 36 Weeks and 5 Days - History Complications: Prior Review of Systems - Review of Systems Constitutional: No problems Breast: No problems ENT: No problems Cardiovascular: No problems Respiratory: No problems Gastrointestinal: No problems Genitourinary: No problems Musculoskeletal: No problems Neurological: No problems Skin: No problems Vital Signs - Temperature Temperature: 97.2 F Temperature Source: Temporal Artery Scan - Pulse Right Brachial Pulse Rate: 71 Pulse Assessment Method: Automatic Cuff - Respirations Respiratory Rate: 18 Oxygen Delivery Method: Room Air - Blood Pressure Right Arm Blood Pressure: 123/72 Blood Pressure Mean: 89 Blood Pressure Source: Automatic Cuff Medical Screen Scoring (Pre) - Cervical Exam Dilation: Exam Deferred Effacement: Exam Deferred Membranes: Intact - Uterine Contractions Frequency: N/A Duration: N/A Intensity: N/A - Maternal Vital Signs Maternal Temperature: N/A Maternal Blood Pressure: N/A Signs of Preeclampsia: N/A Maternal Respirations: N/A - Pain Assessment Pain Scale Used: Numeric (1 - 10) Pain Intensity: 0 - Maternal Trauma Maternal Trauma: N/A - Assessment Baseline FHR: 135 Heart Rate - NICHD Category: Category I (Normal) = 0 NST: Reactive Position: N/A Station: N/A - Total Score Total Score (Pre): 0 - Level of Risk Level of Risk: Low (0-5) Physician Notification (Pre) - Physician Notified Physician Notified Date: 05/25/18 Physician Notified Time: 10:24 Physician/Practitioner Notifed:: Dr Pizarro Spoke With: New Order Received: Yes - Notification Comment Comment: discharge home, return for repeat c/s, continue kick counts Disposition - Disposition OB Disposition: Triage, Discharge to home, Written follow up instructions reviewed Discharge Date: 05/25/18 Discharge Time: 10:30 I agree with the RN Medical Screening Exam: Yes Risk & Benefit of care provided described in d/c instruction: Yes Diagnosis: MATERN CARE FOR OTH OR SUSP POOR FETL GRTH, THIRD TRI, UNSP
== END 2018-05-25 10:30 | disposition home or self-care (01) ==
LOC: FBPOP 09:28
PROVIDERS: ATTEND Obstetrics & Gynecology
DX: O36.5930 Maternal care for other known or suspected poor fetal growth, third trimester, not applicable or unspecified (principal); Z3A.36 36 weeks gestation of pregnancy
CPT/HCPCS: 59025; 99213

== ENCOUNTER 2018-05-28 06:10 | Inpatient (IN) | payer MEDICAID ==
[2018-05-26 11:01] VITALS: BMI 23.3
--- NOTE | 2018-05-27 19:12 | P.HPOB ---
History of Present Illness H&P Date: 05/27/18 Chief Complaint: Severe IUGR This is a 32-year-old female 2 para 1 with an estimated date of confinement of 06/17/2018 estimated gestational age of 37 and one sevenths weeks, who presents to labor and delivery for induction of labor secondary to severe intrauterine growth restriction. She has been followed by maternal medicine during this . Her last ultrasound showed growth at 2 percentile. NSTs have been reactive. Her has been complicated by some spotting and bleeding starting around 32 weeks. At that time she was noted to be dilated to approximately fingertip to 1 cm. She was placed on bedrest and also given Celestone at that time. has also been uncomplicated by abnormal quad screen. She was seen by maternal medicine and ultrasound at that time did show a left EIF. [id number] testing was negative. echo showed a single echogenic focus associated with mitral valve papillary muscles but normal anatomy. labs: GC/chlamydia-negative Random glucose-68 Hemoglobin-12.9 Hepatitis B surface antigen-negative Rubella-immune Syphilis antibody-negative Blood type-O+ Antibody screen-negative Quad screen-increased risk for Down syndrome and neural tube defect and Smjgo-Dkswv-Alvuj syndrome. 1 hour Glucola-119 Group B streptococcus-negative Obstetrical history: . History of 1 delivery at 37 weeks due to breech presentation. She was diagnosed with a bicornate uterus with partial septum at that time. Gynecologic history: No history of sexual transmitted diseases. She has a diagnosis of bicornuate uterus. Social history: She is . She works as an RN. Review of Systems Constitutional: Denies chills, Denies fever Eyes: denies blurred vision, denies pain Ears, nose, mouth and throat: Denies headache, Denies sore throat Cardiovascular: Denies chest pain, Denies shortness of breath Respiratory: Denies cough Gastrointestinal: Reports abdominal pain (Mild lower cramping) Genitourinary: Reports pelvic pain, Reports Musculoskeletal: Reports low back pain Integumentary: Denies pruritus, Denies rash Neurological: Denies numbness, Denies weakness Psychiatric: Denies anxiety, Denies depression Past Medical History Past Medical History: Skin Disorder Additional Past Medical History / Comment(s): Bicornuate uterus, eczema History of Any Multi-Drug Resistant Organisms: None Reported Past Surgical History: Adenoidectomy, Section, Ear Surgery Past Anesthesia/Blood Transfusion Reactions: Motion Sickness, Postoperative Nausea & Vomiting (PONV) Past Psychological History: No Psychological Hx Reported Smoking Status: Never smoker Past Alcohol Use History: None Reported Past Drug Use History: None Reported - Past Family History Father Family Medical History: Cancer (Cirrhosis of the liver) Additional Family Medical History / Comment(s): Cirrhosis of the liver Medications and Allergies Home Medications Medication Instructions Recorded Confirmed Type Pnv,Calcium 72/Iron/Folic Acid 1 each PO DAILY 05/25/15 05/26/18 History [ Plus Tablet] Allergies Allergy/AdvReac Type Severity Reaction Status Date / Time cefaclor [From Ceclor] Allergy Rash/Hives Verified 05/25/18 09:35 oxycodone HCl [From Percocet] Allergy Nausea & Verified 05/25/18 09:35 Vomiting Penicillins Allergy Rash/Hives Verified 05/25/18 09:35 Sulfa (Sulfonamide Allergy Rash/Hives Verified 05/26/18 10:55 Antibiotics) sulfamethoxazole Allergy Rash/Hives Verified 05/25/18 09:35 [From Bactrim] trimethoprim [From Bactrim] Allergy Rash/Hives Verified 05/25/18 09:35 Exam Osteopathic Statement: *. No significant issues noted on an osteopathic structural exam other than those noted in the History and Physical/Consult. HEENT: Within normal limits Heart: Regular rate and rhythm Lungs: Clear to auscultation bilaterally Abdomen: , fundal height of 32-1/2 cm heart tones: 130s by Doppler. Contractions: Irregular Cervix: Fingertip/70%/-2 station Extremities: Negative Homans Assessment and Plan (1) 37 weeks gestation of Status: Acute Code(s): Z3A.37 - 37 WEEKS GESTATION OF SNOMED Code(s): 02579061 (2) IUGR (intrauterine growth restriction) affecting care of mother Status: Acute Code(s): O36.5990 - MATERN CARE FOR OTH OR SUSP POOR FETL GRTH, UNSP TRI, UNSP SNOMED Code(s): 763401128 (3) Previous delivery affecting Status: Acute Code(s): O34.219 - MATERNAL CARE FOR UNSP TYPE SCAR FROM PREVIOUS DEL SNOMED Code(s): 219666095 (4) Bicornuate uterus affecting in third trimester, antepartum Status: Acute Code(s): O34.03 - MATERNAL CARE FOR UNSP CONGEN MALFORM OF UTERUS, THIRD TRI; Q51.3 - BICORNATE UTERUS SNOMED Code(s): 355903015 Plan: Proceed with repeat low transverse section. I have discussed the risks, benefits, and alternative therapies for the above- mentioned procedure and for both sedation/anesthesia as well as necessary blood products administration, if indicated, as they pertain to this patient. The patient has indicated her understanding and acceptance of the risks and procedu res discussed.
[2018-05-28] MEDS ORDERED: LACTATED RINGERS 1,000 ML IV ONE (06:22)
[2018-05-28] MEDS ORDERED: LIDOCAINE 1% 20 ML VIAL (10MG/ML) FOR IV START INTRADERMA PRN (06:22)
[2018-05-28] MEDS ORDERED: CITRIC ACID-SODIUM CITRATE 15 ML CUP PO ONE (06:22)
[2018-05-28] MEDS ORDERED: CLINDAMYCIN 900 MG in DEXTROSE 5% IN WATER 50 ML IVPB STA ×2 (06:22)
[2018-05-28 06:43] LABS: Basophils % (A) 0 %; Eosinophils # (A) 0.2 k/uL (0-0.7); Eosinophils % (A) 2 %; HCT 36.8 % (34.0-46.0); HGB 12.2 gm/dL (11.4-16.0); Lymphocytes # (A) 2.1 k/uL (1.0-4.8); Lymphocytes % (A) 20 %; MCH 30.5 pg (25.0-35.0); MCHC 33.3 g/dL (31.0-37.0); MCV 91.6 fL (80.0-100.0); Mean Platelet Volume 9.8; Monocytes # (A) 0.5 k/uL (0-1.0); Monocytes % (A) 5 %; Neutrophils # (A) 7.4 k/uL (1.3-7.7); Neutrophils % (A) 72 %; Platelet Count 143 k/uL (150-450); RBC 4.02 m/uL (3.80-5.40); WBC 10.4 k/uL (3.8-10.6)
[2018-05-28] MEDS ORDERED: KETOROLAC 30 MG/ML 1 ML VIAL ONE (07:53)
[2018-05-28] MEDS ORDERED: OXYTOCIN 10 UNIT/ML 1 ML VIAL ONE (07:53)
[2018-05-28] MEDS ORDERED: MORPHINE SULFATE (PF) 0.3 MG/0.3 ML SYR ONE (07:53)
[2018-05-28] MEDS ORDERED: NALBUPHINE 10 MG/ML (1 ML AMP) ONE (07:53)
[2018-05-28] MEDS ORDERED: ONDANSETRON 4 MG/2 ML VIAL ONE (07:53)
--- NOTE | 2018-05-28 08:42 | P.OP ---
Date of Procedure: 05/28/18 Preoperative Diagnosis: 1. Intrauterine at 37 and one sevenths weeks. 2. Severe intrauterine growth restriction. 3. History of previous section. 4 Bicornate uterus. 5. Abnormal Quad screen Postoperative Diagnosis: Same Procedure(s) Performed: Repeat low transverse section Anesthesia: spinal (Duramorph) Surgeon: Rose Pizarro Ammonia Box Operator #1: Lizandro Bhardwaj Estimated Blood Loss (ml): 300 Pathology: other (Placenta) Condition: stable Disposition: floor Indications for Procedure: This is a 32-year-old female 2 para 1 at 37 and one sevenths weeks who presents for scheduled repeat section secondary to severe intrauterine growth restriction and history of previous section. Please see history and physical for details of patient's admission. I have discussed the risks, benefits, and alternative therapies for the above- mentioned procedure and for both sedation/anesthesia as well as necessary blood products administration, if indicated, as they pertain to this patient. The patient has indicated her understanding and acceptance of the risks and procedures discussed. Operative Findings: A viable male infant is noted in the vertex presentation with scores of 8 at 1 minute and 8 at 5 minutes and weight of 4 lbs. 8 oz. Nuchal cord times one was noted. A bicornate/heart-shaped uterus is noted with a septum palpated. Normal ovaries are noted bilaterally. Description of Procedure: The patient is taken to the operating room where she is placed in the dorsal supine position with leftward tilt after spinal Duramorph anesthesia is given. She is prepped and draped in the normal sterile fashion. Skin was tested and found to be adequately anesthetized. A Pfannenstiel skin incision was made with a scalpel removing the previous laparotomy scar. A second knife was used to carry the incision down to the underlying layer of fascia. The fascia was nicked in the midline with a scalpel and then extended laterally bilaterally with Swanson scissors. The anterior lip of the fascia was grasped with 2 Genesis clamps and then dissected off the underlying rectus muscle in the midline with Swanson scissors. The inferior aspect of the fascial incision was grasped with 2 Genesis clamps and dissected off the underlying rectus muscle and the midline with Swanson scissors. Next the peritoneum layer was tented up with 2 hemostats and then entered sharply with the scalpel. The incision is extended superiorly and inferiorly with Metzenbaum scissors. Next a DeLee retractor is placed. The vesicouterine peritoneum is entered sharply with Metzenbaum scissors and extended laterally bilaterally with Metzenbaum scissors and then the bladder flap is pushed inferiorly. The lower uterine segment is incised in transverse fashion with the scalpel and then bluntly entered with a hemostat. Clear fluid is noted. The incision was then extended laterally bilaterally with 2 fingers. Next the 's head is delivered through the incision. Nuchal cord times one was reduced around the 's head. Nose and mouth are bulb suctioned. The remainder of the infant is easily delivered and placed on mother's abdomen. Cord is clamped and cut. Infant is taken to warmer by nursing staff. Cord blood was obtained secondary to O+ blood type. Uterine fundus is gently massaged and placenta is delivered manually. Uterus is exteriorized and cleared of all clots and debris. Uterine incision is closed with 0 Vicryl suture in a running locked fashion. A second layer of 0 Vicryl suture is used in a running fashion for hemostasis. Once adequate hemostasis as assured, the vesicouterine peritoneum is reapproximated with 2-0 Vicryl suture in a running fashion. Posterior cul-de-sac is suctioned of all clots and debris. Uterus is returned to the abdomen. Incision is noted to be hemostatic. Peritoneal layer is closed with 0 Vicryl suture in a running fashion. Muscle layer is reapproximated with 0 Vicryl suture in interrupted fashion. Fascia layer is then closed with 0 PDS suture with 2 sutures meeting in the midline and the knots buried in either side and in the midline. The subcutaneous tissue was then closed with 2-0 Vicryl suture. Skin layer was then closed with debra. All sponge and needle counts are correct. The patient is taken to recovery room in stable condition.
[2018-05-28] MEDS ORDERED: NALOXONE 0.4 MG/ML 1 ML VIAL IV PRN (09:07)
[2018-05-28] MEDS ORDERED: diphenhydrAMINE 50 MG CAP PO PRN (09:07)
[2018-05-28] MEDS ORDERED: HYDROcodone/APAP 7.5-325MG 1 EACH TAB PO PRN (09:07)
[2018-05-28] MEDS ORDERED: METOCLOPRAMIDE 5 MG/ML 2 ML VIAL IVP PRN (09:07)
[2018-05-28] MEDS ORDERED: SIMETHICONE 80 MG CHEWABLE PO PRN (09:07)
[2018-05-28] MEDS ORDERED: diphenhydrAMINE 50 MG/ML 1 ML VIAL IVP PRN ×2 (09:07)
[2018-05-28] MEDS ORDERED: ZOLPIDEM 5 MG TAB PO PRN (09:07)
[2018-05-28] MEDS ORDERED: ONDANSETRON 4 MG/2 ML VIAL IVP PRN (09:07)
[2018-05-28] MEDS ORDERED: diphenhydrAMINE 25 MG CAP PO PRN (09:07)
[2018-05-28] MEDS ORDERED: OXYTOCIN 20 UNITS/1000 ML NS 1,000 ML IV SCH (09:07)
[2018-05-28] MEDS ORDERED: ACETAMINOPHEN TAB 325 MG TAB PO PRN (09:07)
[2018-05-28] MEDS: KETOROLAC 30 MG/ML 1 ML VIAL IVP PRN ×2 (14:00→20:12)
[2018-05-28] MEDS: LACTATED RINGERS 1,000 ML IV SCH ×2 (19:19→20:27)
[2018-05-28] MEDS: SENNOSIDES-DOCUSATE SODIUM 1 EACH TAB PO SCH (20:27)
--- NOTE | 2018-05-29 05:02 | P.PNOBGPC ---
Subjective - Subjective Principal diagnosis: Status post repeat section postoperative day #1 Interval history: Patient is doing okay. She is ambulating. She is working at breast-feeding. Lochia is decreasing. Pain is fairly well controlled at this time. She is not passing flatus or bowel movement yet. Patient reports: Reports appetite normal, Reports voiding normally, Reports pain well controlled, Reports ambulating normally : other (In level I nursery with bilirubin issues) Objective - Vital Signs Latest vital signs: Vital Signs Temp Pulse Resp BP Pulse Ox 05/29/18 00:00 98 F 62 15 113/71 05/28/18 20:00 98 F 58 L 15 121/73 05/28/18 16:00 97.7 F 53 L 16 107/51 99 05/28/18 12:00 97.5 F L 54 L 18 120/57 98 05/28/18 10:41 97.6 F 51 L 18 108/64 98 05/28/18 10:11 54 L 18 123/84 05/28/18 09:41 97.3 F L 56 L 16 110/64 05/28/18 09:26 60 18 110/62 05/28/18 09:11 50 L 17 113/66 05/28/18 08:56 64 18 117/64 05/28/18 08:41 96.8 F L 63 18 112/60 97 05/28/18 06:26 97.9 F 76 16 140/83 99 Intake and Output 05/28/18 05/28/18 05/29/18 14:59 22:59 06:59 Intake Total 1050 Output Total 125 900 700 Balance 925 -900 -700 Intake: Intake, IV Titration 1050 Amount Clindamycin 900 mg In 50 Dextrose 5% in Water 50 ml @ 50 mls/hr IVPB ONCE STA Rx#:[id number] Lactated Ringers 1,000 ml 1000 @ 4000 mls/hr IV .Q15M ONE Rx#:[id number] Output: Urine 125 900 700 Uretheral (Lee) 300 Other: Voiding Method Indwelling Catheter Indwelling Catheter # Voids 1 1 - Exam Extremities: Present: normal Abdomen: Present: normal appearance, soft (Positive bowel sounds 4). Absent: distention, tenderness Incision: Present: normal, dry, intact. Absent: erythematous Uterus: Present: normal, firm. Absent: tenderness - Labs Labs: Abnormal Lab Results - Last 24 Hours (Table) 05/28/18 Range/Units 06:33 Plt Count 143 L (150-450) k/uL Assessment and Plan Assessment: Status post repeat section postoperative day #1 (1) 37 weeks gestation of Current Visit: No Status: Acute Code(s): Z3A.37 - 37 WEEKS GESTATION OF SNOMED Code(s): 40308481 (2) IUGR (intrauterine growth restriction) affecting care of mother Current Visit: No Status: Acute Code(s): O36.5990 - MATERN CARE FOR OTH OR SUSP POOR FETL GRTH, UNSP TRI, UNSP SNOMED Code(s): 040227821 (3) Previous delivery affecting Current Visit: No Status: Acute Code(s): O34.219 - MATERNAL CARE FOR UNSP TYPE SCAR FROM PREVIOUS DEL SNOMED Code(s): 175912113 (4) Bicornuate uterus affecting in third trimester, antepartum Current Visit: No Status: Acute Code(s): O34.03 - MATERNAL CARE FOR UNSP CONGEN MALFORM OF UTERUS, THIRD TRI; Q51.3 - BICORNATE UTERUS SNOMED Code(s): 444830788 Plan: We'll continue with postoperative care. Will advance diet as tolerated after flatus. Encouraged ambulation.
[2018-05-29] MEDS: LACTATED RINGERS 1,000 ML IV SCH (05:17)
[2018-05-29 06:56] LABS: Basophils % (A) 0 %; Eosinophils # (A) 0.2 k/uL (0-0.7); Eosinophils % (A) 2 %; HCT 30.2 % (34.0-46.0); HGB 10.3 gm/dL (11.4-16.0); Lymphocytes # (A) 1.3 k/uL (1.0-4.8); Lymphocytes % (A) 12 %; MCH 31.7 pg (25.0-35.0); MCHC 34.2 g/dL (31.0-37.0); MCV 92.8 fL (80.0-100.0); Mean Platelet Volume 8.9; Monocytes # (A) 0.3 k/uL (0-1.0); Monocytes % (A) 3 %; Neutrophils # (A) 8.6 k/uL (1.3-7.7); Neutrophils % (A) 82 %; Platelet Count 116 k/uL (150-450); RBC 3.25 m/uL (3.80-5.40); RDW 13.2 % (11.5-15.5); WBC 10.5 k/uL (3.8-10.6)
[2018-05-29] MEDS: KETOROLAC 30 MG/ML 1 ML VIAL IVP PRN (07:41)
[2018-05-29] MEDS: SENNOSIDES-DOCUSATE SODIUM 1 EACH TAB PO SCH (08:16)
--- NOTE | 2018-05-29 11:18 | P.PN ---
Progress Note - Text Anesthesia POD 1. Patient is status post section under spinal anesthesia with intra-thecal preservative free morphine 300 g. Minimal pruritus, excellent post-op analgesia, and no headache or other complications.
[2018-05-29] MEDS: IBUPROFEN 600 MG TAB PO PRN (16:07)
[2018-05-29] MEDS: HYDROcodone/APAP 5-325MG 1 EACH TAB PO PRN (22:49)
[2018-05-30] MEDS: SENNOSIDES-DOCUSATE SODIUM 1 EACH TAB PO SCH ×3 (01:27→19:39)
[2018-05-30] MEDS: LACTATED RINGERS 1,000 ML IV SCH ×2 (01:29→01:30)
[2018-05-30] MEDS: IBUPROFEN 600 MG TAB PO PRN ×3 (02:10→19:38)
--- NOTE | 2018-05-30 08:10 | P.PNOBGPC ---
Subjective - Subjective Principal diagnosis: S/P RLTCS POD #2 Interval history: Patient seen and examined. Denies nausea, vomiting, chest pain, shortness of breath or calf pain. She is ambulating and voiding without difficulty. Patient reports: Reports appetite normal, Reports voiding normally, Reports pain well controlled, Reports ambulating normally [place]: doing well Objective - Vital Signs Latest vital signs: Vital Signs Temp Pulse Resp BP Pulse Ox 05/30/18 07:42 98.3 F 74 18 114/79 05/29/18 23:40 76 16 05/29/18 23:38 98.4 F 76 16 114/74 100 05/29/18 16:12 98.2 F 77 16 118/74 100 05/29/18 08:28 98.1 F 75 16 126/81 Intake and Output 05/29/18 05/30/18 05/30/18 22:59 06:59 14:59 Other: Voiding Method Indwelling Catheter # Voids 2 2 1 - Exam Lungs: bilateral: normal Chest: Normal S1, Normal S2 Extremities: Present: normal Abdomen: Present: normal appearance, soft. Absent: distention, tenderness Incision: Present: normal, dry, intact Uterus: Present: normal, firm Assessment and Plan (1) Status post repeat low transverse section Current Visit: Yes Status: Acute Code(s): Z98.891 - HISTORY OF UTERINE SCAR FROM PREVIOUS SURGERY SNOMED Code(s): 160355525 Plan: 1. Patient would like to be discharged if her baby can go, otherwise she will continue her postoperative care
[2018-05-30] MEDS: HYDROcodone/APAP 5-325MG 1 EACH TAB PO PRN ×2 (14:04→23:05)
[2018-05-31] MEDS: IBUPROFEN 600 MG TAB PO PRN ×3 (02:04→15:48)
--- NOTE | 2018-05-31 07:53 | P.DS ---
Providers Date of admission: 05/28/18 06:10 Expected date of discharge: 05/31/18 Attending physician: Rose Pizarro Primary care physician: Stated None - Discharge Diagnosis(es) (1) Status post repeat low transverse section Current Visit: Yes Status: Acute Hospital Course: Patient underwent repeat low transverse . Her post operative course was uncomplicated. The baby did have some jaundice and so she stayed in the hospital little longer. She'll be discharged home postoperative day #3 in stable condition to follow-up with Dr. Pizarro in one week. Plan - Discharge Summary Discharge Rx Participant: Yes New Discharge Prescriptions: New Ibuprofen [Motrin] 600 mg PO Q6HR PRN #30 tab PRN Reason: Mild Pain Or Fever >= 100.5 HYDROcodone/APAP 7.5-325MG [[place] 7.5-325] 1 each PO Q4H PRN 3 Days #18 tab PRN Reason: Severe Pain No Action Pnv,Calcium 72/Iron/Folic Acid [ Plus Tablet] 1 each PO DAILY Discharge Medication List Pnv,Calcium 72/Iron/Folic Acid [ Plus Tablet] 1 each PO DAILY 05/25/15 [History] HYDROcodone/APAP 7.5-325MG [[place] 7.5-325] 1 each PO Q4H PRN 3 Days #18 tab 05/30/18 [Rx] Ibuprofen [Motrin] 600 mg PO Q6HR PRN #30 tab 05/30/18 [Rx] Follow up Appointment(s)/Referral(s): Rose Pizarro DO [Doctor of Osteopathic Medicine] - 10 Days Activity/Diet/Wound Care/Special Instructions: Instructions 1. Do not begin any exercise program for 3 weeks. 2. Do not resume sexual relations for 3 weeks or longer if uncomfortable. 3. You may take tub baths or showers at any time. 4. You may use tampons if desired after 3 weeks. 5. Keep the area of episiotomy (stitches) clean and dry. 6. If you are not nursing, wear a good fitting, supportive bra during the day and limit fluid intake for at least 1 week to prevent breast engorgement. 7. Call the office, [phone], within the next week to make appointment for your 6 week checkup if it has not already been made. 8. Report any of the following occurrences to the doctor promptly: a. Heavy, excessive bleeding b. Chills, fever c. Burning or frequency of urination d. Pain or redness and breasts if nursing e. Increasing pain or swelling in episiotomy (stitches). In addition to the above instructions, the following additional should be followed: 1. No heavy lifting or straining (exercising) until after 6 week checkup. 2. Keep abdominal incision clean and dry: You may wear a dressing if more comfortable. 3. Make office appointment for 10 days after going home or as instructed by her doctor. Discharge Disposition: HOME SELF-CARE
[2018-05-31] MEDS: SENNOSIDES-DOCUSATE SODIUM 1 EACH TAB PO SCH ×2 (08:29→19:55)
[2018-05-31 15:52] VITALS: RESP 16
[2018-05-31] MEDS: HYDROcodone/APAP 5-325MG 1 EACH TAB PO PRN (19:54)
[2018-06-01] MEDS: IBUPROFEN 600 MG TAB PO PRN ×2 (03:53→10:18)
[2018-06-01 09:12] VITALS: BP 132/80; PULSE 77; TEMP 98.5
[2018-06-01] MEDS: SENNOSIDES-DOCUSATE SODIUM 1 EACH TAB PO SCH (09:14)
[2018-06-01] MEDS: HYDROcodone/APAP 5-325MG 1 EACH TAB PO PRN (14:46)
== END 2018-06-01 14:40 | disposition home or self-care (01) | DRG 788 ==
LOC: 4FBP 06:10
PROVIDERS: ADMIT Obstetrics & Gynecology; ATTEND Obstetrics & Gynecology
PROC: 10D00Z1 Extraction of Products of Conception, Low, Open Approach (ICD-10-PCS; principal; 2018-05-28 08:00)
DX: O36.5930 Maternal care for other known or suspected poor fetal growth, third trimester, not applicable or unspecified (principal); O34.211 Maternal care for low transverse scar from previous cesarean delivery; O34.03 Maternal care for unspecified congenital malformation of uterus, third trimester; O69.81X0 Labor and delivery complicated by cord around neck, without compression, not applicable or unspecified; O46.90 Antepartum hemorrhage, unspecified, unspecified trimester; Q51.3 Bicornate uterus; Z3A.37 37 weeks gestation of pregnancy; Z37.0 Single live birth; N85.8 Other specified noninflammatory disorders of uterus; L30.9 Dermatitis, unspecified; Z79.899 Other long term (current) drug therapy; Z88.1 Allergy status to other antibiotic agents; Z88.0 Allergy status to penicillin; Z88.2 Allergy status to sulfonamides; Z80.9 Family history of malignant neoplasm, unspecified; Z83.79 Family history of other diseases of the digestive system
CPT/HCPCS: 85025; 86850; 86900; 86901; 88307

== ENCOUNTER → 2021-01-08 | Outpatient (CLI) | payer MEDICAID, OTHER | LOC: LAB 14:47 | PROVIDERS: ATTEND Emergency Medicine | DX: Z20.822 Contact with and (suspected) exposure to COVID-19 (principal); Z88.0 Allergy status to penicillin; Z88.1 Allergy status to other antibiotic agents; Z88.2 Allergy status to sulfonamides; Z88.5 Allergy status to narcotic agent | CPT/HCPCS: 87635 ==

== ENCOUNTER → 2021-01-09 | Outpatient (CLI) | payer MEDICAID, OTHER | END | disposition home or self-care (01) | LOC: LABWHC1 15:41 | PROVIDERS: ATTEND Emergency Medicine | DX: Z20.822 Contact with and (suspected) exposure to COVID-19 (principal) | CPT/HCPCS: 87635 ==

== ENCOUNTER → 2021-02-28 | Outpatient (CLI) | payer MEDICAID, OTHER | END | disposition home or self-care (01) | LOC: LABWHC1 10:59 | PROVIDERS: ATTEND Emergency Medicine | DX: Z20.822 Contact with and (suspected) exposure to COVID-19 (principal) | CPT/HCPCS: 87635 ==

== ENCOUNTER → 2021-03-01 | Outpatient (CLI) | payer MEDICAID, OTHER | END | disposition home or self-care (01) | LOC: LABWHC1 12:02 | PROVIDERS: ATTEND Emergency Medicine | DX: Z20.822 Contact with and (suspected) exposure to COVID-19 (principal) | CPT/HCPCS: 87635 ==

== ENCOUNTER → 2021-10-04 | Outpatient (CLI) | payer MEDICAID ==
[2021-10-04 13:57] LABS: HCT 39.9 % (37.2-46.3); HGB 13.2 g/dL (12.0-15.0); MCH 31.1 pg (27.0-32.0); MCHC 33.1 g/dL (32.0-37.0); MCV 93.9 fL (80.0-97.0); NRBC Per 100 WBC 0 /100 WBCS (0.0-0.0); Platelet Count 208 X 10*3/uL (140-440); RBC 4.25 X 10*6/uL (4.10-5.20); RDW 12.7 % (11.5-14.5); WBC 5.95 X 10*3/uL (4.50-10.00)
[2021-10-04 15:07] LABS: ALT 16 U/L (8-44); AST 17 U/L (13-35); African American GFR (CKD) 130.1 (60.0-200.0); Albumin 4.5 g/dL (3.8-4.9); Alkaline Phosphatase 64 U/L (41-126); BUN/Creat Ratio 20.29 Ratio (12.00-20.00); Blood Urea Nitrogen 14.2 mg/dL (9.0-27.0); Calcium 9.5 mg/dL (8.7-10.3); Carbon Dioxide 22.4 mmol/L (20.0-27.5); Chloride 105 mmol/L (96-109); Chol/HDL Ratio 2.82 Ratio; Globulin 2.5 g/dL (1.6-3.3); Glucose 80 mg/dL (70-110); LDL Cholesterol,Calculated 110.4 mg/dL (0.0-131.0); Non-African American GFR(CKD) 112.3 (60.0-200.0); Potassium 4.4 mmol/L (3.5-5.5); Sodium 138 mmol/L (135-145); VLDL Calculation 10.18 mg/dL (5.00-40.00)
== END | disposition home or self-care (01) ==
LOC: LABWHC1 08:27
PROVIDERS: ATTEND Obstetrics & Gynecology
DX: Z13.228 Encounter for screening for other metabolic disorders (principal); Z13.220 Encounter for screening for lipoid disorders; Z13.29 Encounter for screening for other suspected endocrine disorder; Z13.1 Encounter for screening for diabetes mellitus; R53.83 Other fatigue
CPT/HCPCS: 36415; 80053; 80061; 82306; 83036; 84443; 85027

== ENCOUNTER → 2023-04-24 | Outpatient (CLI) | payer MEDICAID ==
--- NOTE | 2023-04-25 14:55 | MM ---
Reason for Exam: Screening (asymptomatic). Baseline mammogram. Patient History: Menarche at age 14. First Full-Term at age 29. Patient has history of breast feeding. Patient used Hormonal Contraceptives for 16 years. Last menstrual period: 04/23/2023 Risk Values: Amarilis 5 year model risk: 0.4%. NCI Lifetime model risk: 11.3%. Prior Study Comparison: Patient's first Mammogram. Tissue Density: The breast tissue is heterogeneously dense. This may lower the sensitivity of mammography. Findings: Analyzed By CAD. There is no suspicious group of microcalcifications or new suspicious mass. Overall Assessment: Negative, BI-RAD 1 Management: Screening Mammogram of both breasts in [address] [facility] will attempt to contact patient to return for supplemental views and ultrasound if indicated. Patient should continue monthly self-breast exams. A clinical breast exam by your physician is recommended on an annual basis. This exam should not preclude additional follow-up of suspicious palpable abnormalities. Note on Amarilis scores and lifetime risk: 1. A Amarilis score greater than 3% is considered moderate risk. If this is the case, consider specialist referral to assess eligibility for a risk reducing agent. 2. If overall lifetime risk for the development of breast cancer is 20% or higher, the patient may qualify for future screening with alternating mammogram and breast MRI. Electronically signed and approved by: Juancarlos Cronin DO
== END | disposition home or self-care (01) ==
LOC: RADMAMWWP 12:13
PROVIDERS: ATTEND Obstetrics & Gynecology
DX: Z12.31 Encounter for screening mammogram for malignant neoplasm of breast (principal)
CPT/HCPCS: 77063; 77067

== ENCOUNTER → 2023-04-24 | Outpatient (CLI) | payer MEDICAID ==
--- NOTE | 2023-04-24 13:26 | US ---
EXAMINATION TYPE: US pelvic complete DATE OF EXAM: 04/24/2023 COMPARISON: NONE CLINICAL INDICATION: Female, 37 years old with history of N93.8 OTHER SPECIFIED ABNORMAL UTERINE AND VAGINAL; DUB TECHNIQUE: Transabdominal (TA). Transabdominal sonographic images of the pelvis were acquired. EXAM MEASUREMENTS: Uterus: 9.1 x 3.7 x 5.7 cm Endometrial Stripe: .5 cm Right Ovary: 2.4 x 1.7 x 3.5 cm Left Ovary: 3.5 x 2.3 x cm 1. Uterus: Anteverted and otherwise wnl 2. Endometrium: wnl 3. Right Ovary: wnl 4. Left Ovary: anechoic area 2.4 x 1.8 x 3.1 cm 5. Bilateral Adnexa: wnl 6. Posterior cul-de-sac: wnl IMPRESSION: A 3.1 cm dominant follicle or functional cyst of the left ovary. Otherwise, unremarkable transabdomin al sonographic examination of the pelvis.
== END | disposition home or self-care (01) ==
LOC: RADUSWWP 12:11
PROVIDERS: ATTEND Obstetrics & Gynecology
DX: N83.292 Other ovarian cyst, left side (principal); N93.8 Other specified abnormal uterine and vaginal bleeding
CPT/HCPCS: 76856

== ENCOUNTER → 2024-03-19 | Outpatient (CLI) | payer MEDICAID ==
[2024-03-19 15:10] LABS: Basophils # (A) 0.06 X 10*3/uL (0.00-0.10); Basophils % (A) 0.7 %; Eosinophils # (A) 0.11 X 10*3/uL (0.04-0.35); Eosinophils % (A) 1.3 %; HGB 13.4 g/dL (12.0-15.0); Lymphocytes # (A) 1.82 X 10*3/uL (0.90-5.00); Lymphocytes % (A) 22.2 %; MCH 30.2 pg (27.0-32.0); MCHC 33.5 g/dL (32.0-37.0); MCV 90.1 FL (80.0-97.0); Mean Platelet Volume 10.3 FL (9.5-12.2); Monocytes # (A) 0.33 X 10*3/uL (0.20-1.00); NRBC Per 100 WBC 0 X 10*3/uL (0.00-0.01); Neutrophils # (A) 5.86 X 10*3/uL (1.80-7.70); Neutrophils % (A) 71.6 %; Platelet Count 263 X 10*3/uL (140-440); RBC 4.44 X 10*6/uL (4.10-5.20); RDW 12.2 % (11.5-14.5)
[2024-03-19 15:38] LABS: ALT 17 U/L (8-44); AST 19 U/L (13-35); Albumin 4.5 g/dL (3.8-4.9); Albumin/Globulin Ratio 1.45 Ratio (1.60-3.17); Alkaline Phosphatase 77 U/L (41-126); Calcium 9.4 mg/dL (8.7-10.3); Carbon Dioxide 22.9 mmol/L (21.6-31.8); Chloride 105 mmol/L (96-109); Chol/HDL Ratio 3.77 Ratio; Globulin 3.1 g/dL (1.6-3.3); Glucose 93 mg/dL (70-110); LDL Cholesterol,Calculated 148.6 mg/dL (0.0-131.0); Potassium 4.2 mmol/L (3.5-5.5); Sodium 139 mmol/L (135-145); T4, Free (Free Thyroxine) 0.96 ng/dL (0.80-1.80); Total Bilirubin 0.3 mg/dL (0.3-1.2); Total Protein 7.6 g/dL (6.2-8.2)
== END | disposition home or self-care (01) ==
LOC: LABWHC1 08:12
PROVIDERS: ATTEND Internal Medicine Geriatric Medicine
DX: E03.9 Hypothyroidism, unspecified (principal); R73.9 Hyperglycemia, unspecified; E78.5 Hyperlipidemia, unspecified; E53.8 Deficiency of other specified B group vitamins; E55.9 Vitamin D deficiency, unspecified
CPT/HCPCS: 36415; 80053; 80061; 82306; 82607; 83036; 84439; 84443; 85025